=== PATIENT | male | born 1955 | race Caucasian/White ===

== ENCOUNTER 2020-07-22 13:44 | Inpatient (IN) | payer MEDICARE, OTHER ==
[~2020-07-22] VITALS: Ht 172.7 cm; Wt 105.4 kg
[2020-07-22] MEDS ORDERED: FENOFIBRATE160 MG PO (17:29)
[2020-07-22] MEDS ORDERED: ASPIRIN81 MG PO (17:29)
[2020-07-22] MEDS ORDERED: HYDROCHLOROTHIA25 MG PO (17:29)
[2020-07-22] MEDS ORDERED: LOSARTAN POTAS100 MG PO (17:29)
[2020-07-22] MEDS ORDERED: TETRACYCLINE H500 MG PO (17:29)
[2020-07-22] MEDS ORDERED: ATENOLOL50 MG PO (17:29)
[2020-07-22] MEDS ORDERED: CITALOPRAM HBR10 MG PO (17:29)
[2020-07-22 17:31] VITALS: BP 135/85
[2020-07-22 17:34] LABS: BASOPHILS # (AUTO) 0.1 (0.0-0.1); BASOPHILS % 0.5 % (0.0-1.0); EOSINOPHILS # (AUTO) 0.1 (0.0-0.4); EOSINOPHILS % 0.7 % (0.0-6.0); HEMATOCRIT 43.1 % (38.2-49.6); HEMOGLOBIN 15.5 g/dL (14.0-18.0); LYMPHOCYTES # (AUTO) 2.9 (1.0-3.2); LYMPHOCYTES % 29.2 % (18.0-39.1); MEAN CORPUSCULAR HEMOGLOBIN 31.2 pg (28-32); MEAN CORPUSCULAR VOLUME 86.7 fL (81-99); MONOCYTES # (AUTO) 0.8 (0.2-0.8); MONOCYTES % 8.1 % (4.4-11.3); NEUTROPHILS # (AUTO) 6.1 (2.1-6.9); NEUTROPHILS % 60.7 % (38.7-80.0); PLATELET COUNT 230 x10e3/uL (140-360); RED BLOOD COUNT 4.97 x10e6/uL (4.3-5.7); RED CELL DISTRIBUTION WIDTH 12.5 % (11.7-14.4)
[2020-07-22 17:55] LABS: ALANINE AMINOTRANSFERASE 27 IU/L (0-55); ALBUMIN/GLOBULIN RATIO 1.3 (0.8-2.0); ALKALINE PHOSPHATASE 56 IU/L (40-150); ANION GAP 15.6 mmol/L (8-16); BLOOD UREA NITROGEN 16 mg/dL (7-26); BUN/CREATININE RATIO 18 (6-25); CALCIUM 9.1 mg/dL (8.4-10.2); CARBON DIOXIDE 24 mmol/L (22-29); CHLORIDE 102 mmol/L (98-107); CREATININE, SERUM 0.88 mg/dL (0.72-1.25); EST GLOMERULAR FILTRATION RATE > 60 ML/MIN (60-); GLUCOSE 116 mg/dL (74-118); POTASSIUM 3.6 mmol/L (3.5-5.1); SODIUM 138 mmol/L (136-145)
[2020-07-22] MEDS ORDERED: SODIUM CHLORIDE 0.9% 250ML 250 ML ONE (18:41)
[2020-07-22] MEDS: PIPER-TAZ 3.375 GM 50 ML IV SCH (18:45)
[2020-07-22 20:00] VITALS: BP 127/86
[2020-07-22 21:31] VITALS: BP 127/86
[2020-07-23] VITALS (8 sets, daily range): BP systolic 123–137; BP diastolic 79–91
[2020-07-23] MEDS: PIPER-TAZ 3.375 GM 50 ML IV SCH ×5 (05:40→23:02)
[2020-07-23] MEDS: SODIUM CHLORIDE 0.9% 1000ML 1,000 ML IV SCH (09:26)
[2020-07-23] MEDS: LOSARTAN POTASSIUM 100 MG TAB PO SCH (09:29)
[2020-07-23] MEDS: HYDROCHLOROTHIAZIDE 25 MG TAB PO SCH (09:29)
[2020-07-23] MEDS: ASPIRIN 81 MG CHEW TAB PO SCH (09:29)
[2020-07-23] MEDS: ATENOLOL 50 MG TAB PO SCH (16:08)
[2020-07-23] MEDS: ATORVASTATIN 20 MG TAB PO SCH (20:21)
[2020-07-24] VITALS (8 sets, daily range): BP systolic 112–133; BP diastolic 79–89
[2020-07-24] MEDS: SODIUM CHLORIDE 0.9% 1000ML 1,000 ML IV SCH ×2 (05:20→23:28)
[2020-07-24] MEDS: PIPER-TAZ 3.375 GM 50 ML IV SCH ×4 (05:20→23:28)
[2020-07-24] MEDS: LOSARTAN POTASSIUM 100 MG TAB PO SCH (08:35)
[2020-07-24] MEDS: ASPIRIN 81 MG CHEW TAB PO SCH (08:35)
[2020-07-24] MEDS: HYDROCHLOROTHIAZIDE 25 MG TAB PO SCH (08:35)
[2020-07-24] MEDS: ATENOLOL 50 MG TAB PO SCH (16:20)
[2020-07-24] MEDS: ATORVASTATIN 20 MG TAB PO SCH (20:12)
[2020-07-25 01:49] VITALS: BP 148/96
[2020-07-25 05:30] LABS: BASOPHILS % 0.5 % (0.0-1.0); EOSINOPHILS # (AUTO) 0.1 (0.0-0.4); HEMATOCRIT 45.2 % (38.2-49.6); LYMPHOCYTES # (AUTO) 1.8 (1.0-3.2); LYMPHOCYTES % 21.9 % (18.0-39.1); MEAN CORPUSCULAR HEMOGLOBIN 31.5 pg (28-32); MEAN CORPUSCULAR HGB CONC 35.4 g/dL (31-35); MONOCYTES # (AUTO) 0.6 (0.2-0.8); MONOCYTES % 7.4 % (4.4-11.3); NEUTROPHILS # (AUTO) 5.7 (2.1-6.9); NEUTROPHILS % 67.9 % (38.7-80.0); PLATELET COUNT 199 x10e3/uL (140-360); RED BLOOD COUNT 5.08 x10e6/uL (4.3-5.7); RED CELL DISTRIBUTION WIDTH 12.1 % (11.7-14.4)
[2020-07-25 05:32] VITALS: BP 136/88
[2020-07-25 05:49] LABS: BLOOD UREA NITROGEN 12 mg/dL (7-26); BUN/CREATININE RATIO 13 (6-25); CALCIUM 9.7 mg/dL (8.4-10.2); CARBON DIOXIDE 23 mmol/L (22-29); CHLORIDE 101 mmol/L (98-107); CREATININE, SERUM 0.89 mg/dL (0.72-1.25); EST GLOMERULAR FILTRATION RATE > 60 ML/MIN (60-); GLUCOSE 113 mg/dL (74-118); SODIUM 136 mmol/L (136-145)
[2020-07-25] MEDS: PIPER-TAZ 3.375 GM 50 ML IV SCH ×3 (06:06→17:17)
[2020-07-25 08:50] VITALS: BP 138/85
[2020-07-25 08:53] VITALS: BP 138/85
[2020-07-25] MEDS: ASPIRIN 81 MG CHEW TAB PO SCH (09:54)
[2020-07-25] MEDS: HYDROCHLOROTHIAZIDE 25 MG TAB PO SCH (09:59)
[2020-07-25] MEDS: LOSARTAN POTASSIUM 100 MG TAB PO SCH (09:59)
[2020-07-25 13:20] VITALS: BP 131/81
[2020-07-25 16:41] VITALS: BP 124/76
[2020-07-25] MEDS: ATENOLOL 50 MG TAB PO SCH (17:17)
== END 2020-07-25 18:40 | disposition home or self-care (01) | DRG 690 ==
LOC: MED/SURG3 16:25
PROVIDERS: ADMIT Family Medicine; ATTEND Family Medicine
DX: N39.0 Urinary tract infection, site not specified (principal); Z16.12 Extended spectrum beta lactamase (ESBL) resistance; I10 Essential (primary) hypertension; E78.5 Hyperlipidemia, unspecified; Z20.828 Contact with and (suspected) exposure to other viral communicable diseases; M41.9 Scoliosis, unspecified; I25.10 Atherosclerotic heart disease of native coronary artery without angina pectoris; N40.0 Benign prostatic hyperplasia without lower urinary tract symptoms; E66.9 Obesity, unspecified; Z68.35 Body mass index [BMI] 35.0-35.9, adult; N43.3 Hydrocele, unspecified
CPT/HCPCS: 36415; 80048; 80053; 85025; 87086; J2543; J7030; J7050; U0002

== ENCOUNTER → 2021-04-03 | Day surgery (SDC) | payer MEDICARE, OTHER ==
[2021-04-01 09:54] LABS: BASOPHILS % 0.5 % (0.0-1.0); EOSINOPHILS # (AUTO) 0.1 (0.0-0.4); EOSINOPHILS % 1.4 % (0.0-6.0); HEMATOCRIT 45.5 % (38.2-49.6); HEMOGLOBIN 16.1 g/dL (14.0-18.0); LYMPHOCYTES # (AUTO) 1.4 (1.0-3.2); LYMPHOCYTES % 25.6 % (18.0-39.1); MEAN CORPUSCULAR HEMOGLOBIN 32.3 pg (28-32); MEAN CORPUSCULAR HGB CONC 35.4 g/dL (31-35); MEAN CORPUSCULAR VOLUME 91.2 fL (81-99); MONOCYTES # (AUTO) 0.4 (0.2-0.8); MONOCYTES % 6.9 % (4.4-11.3); NEUTROPHILS # (AUTO) 3.6 (2.1-6.9); NEUTROPHILS % 65.2 % (38.7-80.0); PLATELET COUNT 207 x10e3/uL (140-360); RED BLOOD COUNT 4.99 x10e6/uL (4.3-5.7); RED CELL DISTRIBUTION WIDTH 12.4 % (11.7-14.4)
[2021-04-01 10:13] LABS: ANION GAP 13.9 mmol/L (8-16); CALCIUM 9.4 mg/dL (8.4-10.2); CREATININE, SERUM 0.99 mg/dL (0.72-1.25); POTASSIUM 3.9 mmol/L (3.5-5.1)
[~2021-04-03] MED LIST: ACETAMINOPHEN/CODEINE 300MG - 30MG TAB ONE; ASPIRIN81 MG PO; ATENOLOL50 MG PO; B&O 60MG R/S 60 MG SUPP PR ONE; BUPIVACAINE HCL 0.5% INJ 30 ML VIAL INJ ONE; CALCET TABLET1 EACH PO; CITALOPRAM HBR10 MG PO; COQ-1030 MG; DEXAMETHASONE SOD PHOS INJ 4 MG/ML VIAL ONE; FENOFIBRATE160 MG PO; FENTANYL CITRATE/PF 100MCG/2 ML INJ ONE; FLOMAX0.4 MG PO; GENTAMICIN 80MG/NS 100 ML 200 ML IV ONE; HYDROCHLOROTHIA25 MG PO; IOPAMIDOL 300MG/ML 50ML INFUS..BTL IV ONE; LIDOCAINE 1% W/EPINEPHRINE 20 ML VIAL ONE; LIDOCAINE HCL 2% LOCAL INJ 5 ML SDV VIAL INJ ONE; LIPITOR20 MG PO; LOSARTAN POTAS100 MG PO; MIDAZOLAM HCL 5 MG/ML VIAL ONE; MONTELUKAST SOD10 MG PO; MULTI-VITAMIN1 EACH PO; OCUVITE TABLET1 EAC1 PO; OMEGA-31000 MG PO; ONDANSETRON HCL INJ 2MG/ML 2ML 2 MG/ML VIAL ONE; PHENYLEPHRINE HCL 1% 10 MG/ML VIAL ONE; PLAVIX75 MG PO; POVIDONE IODINE 0.05% 0.05 % ML PO ONE; PROPOFOL IV EMULSION 10 MG/ML 20 ML VIAL ONE; SEVOFLURANE INHAL SOLN 250 ML PEN BTL ONE; SODIUM CHLORIDE 0.9% 50ML 100 ML ONE; TETRACYCLINE H500 MG PO; VITAMIN C500 MG PO; VITAMIN D310 MCG
[2021-04-03 18:15] VITALS: BP 110/66
== END | disposition home or self-care (01) ==
LOC: OR 11:00
PROVIDERS: ATTEND Urology
DX: N40.0 Benign prostatic hyperplasia without lower urinary tract symptoms (principal); N13.8 Other obstructive and reflux uropathy; N35.912 Unspecified bulbous urethral stricture, male; N43.3 Hydrocele, unspecified; N40.1 Benign prostatic hyperplasia with lower urinary tract symptoms; R39.14 Feeling of incomplete bladder emptying; R35.1 Nocturia; Z87.442 Personal history of urinary calculi; E66.9 Obesity, unspecified; S37.30XS Unspecified injury of urethra, sequela; N45.3 Epididymo-orchitis; N39.0 Urinary tract infection, site not specified; N21.0 Calculus in bladder; Z68.36 Body mass index [BMI] 36.0-36.9, adult; Z01.810 Encounter for preprocedural cardiovascular examination; Z01.812 Encounter for preprocedural laboratory examination; Z01.818 Encounter for other preprocedural examination; Z20.822 Contact with and (suspected) exposure to COVID-19
CPT/HCPCS: 55041; C9740; 36415; 71046; 74420; 80048; 85025; 88302; 88304; 93005; C1758; J0690; J1100; J1580; J2001; J2250; J2370; J2405; J3010; L8699; U0002

== ENCOUNTER 2021-05-13 10:30 | Inpatient (IN) | payer MEDICARE, OTHER ==
[~2021-05-13] VITALS: Ht 172.7 cm; Wt 105.2 kg
[~2021-05-13 10:30] MED LIST changes: -ACETAMINOPHEN/CODEINE 300MG - 30MG TAB ONE; -B&O 60MG R/S 60 MG SUPP PR ONE; -BUPIVACAINE HCL 0.5% INJ 30 ML VIAL INJ ONE; -DEXAMETHASONE SOD PHOS INJ 4 MG/ML VIAL ONE; -FENTANYL CITRATE/PF 100MCG/2 ML INJ ONE; -GENTAMICIN 80MG/NS 100 ML 200 ML IV ONE; -IOPAMIDOL 300MG/ML 50ML INFUS..BTL IV ONE; -LIDOCAINE 1% W/EPINEPHRINE 20 ML VIAL ONE; -LIDOCAINE HCL 2% LOCAL INJ 5 ML SDV VIAL INJ ONE; -MIDAZOLAM HCL 5 MG/ML VIAL ONE; -ONDANSETRON HCL INJ 2MG/ML 2ML 2 MG/ML VIAL ONE; -PHENYLEPHRINE HCL 1% 10 MG/ML VIAL ONE; -POVIDONE IODINE 0.05% 0.05 % ML PO ONE; -PROPOFOL IV EMULSION 10 MG/ML 20 ML VIAL ONE; -SEVOFLURANE INHAL SOLN 250 ML PEN BTL ONE; -SODIUM CHLORIDE 0.9% 50ML 100 ML ONE
[2021-05-13] MEDS ORDERED: ASPIRIN 81 MG CHEW TAB PO ONE (10:45)
[2021-05-13 10:55] LABS: BASOPHILS % 0.3 % (0.0-1.0); EOSINOPHILS # (AUTO) 0.1 (0.0-0.4); EOSINOPHILS % 1.1 % (0.0-6.0); HEMATOCRIT 40.8 % (38.2-49.6); HEMOGLOBIN 14.1 g/dL (14.0-18.0); LYMPHOCYTES # (AUTO) 1.4 (1.0-3.2); LYMPHOCYTES % 12.5 % (18.0-39.1); MEAN CORPUSCULAR HEMOGLOBIN 31.3 pg (28-32); MEAN CORPUSCULAR HGB CONC 34.6 g/dL (31-35); MEAN CORPUSCULAR VOLUME 90.5 fL (81-99); MONOCYTES # (AUTO) 0.6 (0.2-0.8); MONOCYTES % 5.4 % (4.4-11.3); NEUTROPHILS # (AUTO) 8.9 (2.1-6.9); NEUTROPHILS % 80.3 % (38.7-80.0); PLATELET COUNT 206 x10e3/uL (140-360); RED BLOOD COUNT 4.51 x10e6/uL (4.3-5.7); RED CELL DISTRIBUTION WIDTH 13.8 % (11.7-14.4)
[2021-05-13] MEDS ORDERED: MORPHINE SULFATE INJ 4 MG/ML INJ 1ML IV STA (11:58)
[2021-05-13 12:32] LABS: ALBUMIN 4.1 g/dL (3.5-5.0); ALBUMIN/GLOBULIN RATIO 1.4 (0.8-2.0); ANION GAP 16.6 mmol/L (8-16); CALCIUM 9.8 mg/dL (8.4-10.2); CREATININE, SERUM 1.01 mg/dL (0.72-1.25); POTASSIUM 3.6 mmol/L (3.5-5.1)
[2021-05-13 12:39] LABS: CREATINE KINASE MB 0.6 ng/mL (0-5.0)
[2021-05-13] MEDS ORDERED: SODIUM CHLORIDE 0.9% 50ML 50 ML ONE (13:01)
[2021-05-13] MEDS ORDERED: IOPAMIDOL 370 MG/ML 200 ML INFUS..BTL INJ ONE (13:01)
[2021-05-13] MEDS ORDERED: PIPERACILLIN/TAZO 4.5 GM 100 ML IV SCH (14:45)
[2021-05-13] MEDS ORDERED: ATORVASTATIN CA40 MG PO (15:21)
[2021-05-13] MEDS ORDERED: CITALOPRAM HBR20 MG PO (15:21)
[2021-05-13] MEDS ORDERED: FLOMAX0.4 MG PO (15:21)
[2021-05-13] MEDS ORDERED: LOSARTAN POTASS50 MG PO (15:21)
[2021-05-13 16:03] LABS: BACTERIA,URINE MANY /HPF; CLARITY,URINE SL CLOUDY (CLEAR); COLOR,URINE AMBER (YELLOW); KETONES,URINE NEGATIVE (NEGATIVE); LEUKOCYTE ESTERASE ,URINE TRACE (NEGATIVE); NITRITE,URINE POSITIVE (NEGATIVE); PROTEIN,URINE DIPSTICK NEGATIVE (NEGATIVE); URINE UROBILINOGEN 0.2 mg/dL (0.2 - 1)
[2021-05-13 18:02] VITALS: BP 122/82
[2021-05-13 18:11] VITALS: BP 122/82
[2021-05-13 20:00] VITALS: BP 133/78
[2021-05-13] MEDS ORDERED: METRONIDAZOLE 500MG/NS 100ML 100 ML IV SCH (20:00)
[2021-05-13] MEDS: MORPHINE SULFATE INJ 4 MG/ML INJ 1ML IV PRN (21:36)
[2021-05-14] VITALS (7 sets, daily range): BP systolic 112–139; BP diastolic 48–91
[2021-05-14] MEDS: SODIUM CHLORIDE 0.9% 1000ML 1,000 ML IV SCH ×4 (01:12→23:29)
[2021-05-14] MEDS ORDERED: LACTATED RINGER'S 1,000 ML INJ ONE (01:30)
[2021-05-14] MEDS ORDERED: MELATONIN 5 MG TABLET PO PRN (01:30)
[2021-05-14] MEDS: MORPHINE SULFATE INJ 4 MG/ML INJ 1ML IV PRN (02:03)
[2021-05-14] MEDS: ONDANSETRON HCL INJ 2MG/ML 2ML 2 MG/ML VIAL IV PRN (02:03)
[2021-05-14 04:59] LABS: BASOPHILS % 0.3 % (0.0-1.0); EOSINOPHILS # (AUTO) 0.1 (0.0-0.4); EOSINOPHILS % 1.3 % (0.0-6.0); HEMATOCRIT 38.8 % (38.2-49.6); LYMPHOCYTES # (AUTO) 0.9 (1.0-3.2); LYMPHOCYTES % 14.8 % (18.0-39.1); MEAN CORPUSCULAR HEMOGLOBIN 31.2 pg (28-32); MEAN CORPUSCULAR HGB CONC 33.5 g/dL (31-35); MONOCYTES # (AUTO) 0.5 (0.2-0.8); MONOCYTES % 7.4 % (4.4-11.3); NEUTROPHILS # (AUTO) 4.8 (2.1-6.9); PLATELET COUNT 130 x10e3/uL (140-360); RED BLOOD COUNT 4.17 x10e6/uL (4.3-5.7); RED CELL DISTRIBUTION WIDTH 13.2 % (11.7-14.4)
[2021-05-14] MEDS: METRONIDAZOLE 500MG/NS 100ML 100 ML IV SCH ×4 (05:11→23:29)
[2021-05-14] MEDS: PIPERACILLIN/TAZOBACTAM 3.375 GM in SODIUM CHLORIDE 0.9% 50ML 50 ML IV SCH ×4 (05:15→23:29)
[2021-05-14 05:24] LABS: ALBUMIN 3.6 g/dL (3.5-5.0); ALBUMIN/GLOBULIN RATIO 1.2 (0.8-2.0); ANION GAP 14.6 mmol/L (8-16); CALCIUM 9.1 mg/dL (8.4-10.2); CREATININE, SERUM 0.96 mg/dL (0.72-1.25); POTASSIUM 3.6 mmol/L (3.5-5.1)
[2021-05-14] MEDS ORDERED: GADOBENATE DIMEGLUMINE 1 ML IV ONE (09:18)
[2021-05-14] MEDS ORDERED: SODIUM CHLORIDE 0.9% 50ML 50 ML ONE (09:18)
[2021-05-15] VITALS (10 sets, daily range): BP systolic 104–133; BP diastolic 56–81
[2021-05-15] MEDS: PIPERACILLIN/TAZOBACTAM 3.375 GM in SODIUM CHLORIDE 0.9% 50ML 50 ML IV SCH ×3 (05:29→17:53)
[2021-05-15] MEDS: METRONIDAZOLE 500MG/NS 100ML 100 ML IV SCH ×2 (05:29→12:00)
[2021-05-15 05:44] LABS: BASOPHILS % 0.6 % (0.0-1.0); EOSINOPHILS # (AUTO) 0.2 (0.0-0.4); EOSINOPHILS % 2.9 % (0.0-6.0); HEMOGLOBIN 11.7 g/dL (14.0-18.0); LYMPHOCYTES # (AUTO) 1.4 (1.0-3.2); LYMPHOCYTES % 25.8 % (18.0-39.1); MEAN CORPUSCULAR HEMOGLOBIN 31.2 pg (28-32); MEAN CORPUSCULAR HGB CONC 34.4 g/dL (31-35); MEAN CORPUSCULAR VOLUME 90.7 fL (81-99); MONOCYTES # (AUTO) 0.4 (0.2-0.8); NEUTROPHILS # (AUTO) 3.3 (2.1-6.9); NEUTROPHILS % 62.3 % (38.7-80.0); PLATELET COUNT 123 x10e3/uL (140-360); RED BLOOD COUNT 3.75 x10e6/uL (4.3-5.7); RED CELL DISTRIBUTION WIDTH 12.8 % (11.7-14.4)
[2021-05-15 06:14] LABS: ALBUMIN 3.3 g/dL (3.5-5.0); ALBUMIN/GLOBULIN RATIO 1.3 (0.8-2.0); ANION GAP 15.1 mmol/L (8-16); CALCIUM 8.5 mg/dL (8.4-10.2); CREATININE, SERUM 0.85 mg/dL (0.72-1.25); POTASSIUM 3.1 mmol/L (3.5-5.1)
[2021-05-15] MEDS ORDERED: POTASSIUM CHLORIDE 10MEQ/100ML 200 ML IV ONE (09:30)
[2021-05-15] MEDS: SODIUM CHLORIDE 0.9% 1000ML 1,000 ML IV SCH ×2 (10:30→20:30)
[2021-05-15] MEDS ORDERED: SEVOFLURANE INHAL SOLN 250 ML PEN BTL ONE (12:33)
[2021-05-15] MEDS ORDERED: POVIDONE IODINE 0.05% 0.05 % ML PO ONE (12:33)
[2021-05-15] MEDS ORDERED: LIDOCAINE HCL 2% LOCAL INJ 5 ML SDV VIAL INJ ONE (12:33)
[2021-05-15] MEDS ORDERED: KETOROLAC TROMETHAMINE 30 MG/ML VIAL ONE (12:33)
[2021-05-15] MEDS ORDERED: ONDANSETRON HCL INJ 2MG/ML 2ML 2 MG/ML VIAL ONE (12:33)
[2021-05-15] MEDS ORDERED: NEOSTIGMINE 1 MG/ML 10ML VIAL ONE (12:33)
[2021-05-15] MEDS ORDERED: GLYCOPYRROLATE INJ 0.2 MG/ML VIAL ONE (12:33)
[2021-05-15] MEDS ORDERED: PROPOFOL IV EMULSION 10 MG/ML 20 ML VIAL ONE (12:33)
[2021-05-15] MEDS ORDERED: DEXAMETHASONE SOD PHOS INJ 4 MG/ML SDV ONE (12:33)
[2021-05-15] MEDS ORDERED: ROCURONIUM BROMIDE 10 MG/ML 5ML VIAL IV ONE (12:33)
[2021-05-15] MEDS ORDERED: IOPAMIDOL 300MG/ML 50ML INFUS..BTL IV ONE (13:48)
[2021-05-15] MEDS: ONDANSETRON HCL INJ 2MG/ML 2ML 2 MG/ML VIAL IV PRN (17:45)
[2021-05-15] MEDS: MORPHINE SULFATE INJ 4 MG/ML INJ 1ML IV PRN (17:45)
[2021-05-16] VITALS: BP 132/79
[2021-05-16 04:00] VITALS: BP 141/65
[2021-05-16] MEDS: ONDANSETRON HCL INJ 2MG/ML 2ML 2 MG/ML VIAL IV PRN (04:06)
[2021-05-16] MEDS: MORPHINE SULFATE INJ 4 MG/ML INJ 1ML IV PRN (04:06)
[2021-05-16] MEDS: SODIUM CHLORIDE 0.9% 1000ML 1,000 ML IV SCH (06:14)
[2021-05-16] MEDS: PIPERACILLIN/TAZOBACTAM 3.375 GM in SODIUM CHLORIDE 0.9% 50ML 50 ML IV SCH ×4 (06:14→12:13)
[2021-05-16 06:34] LABS: BASOPHILS % 0.1 % (0.0-1.0); HEMATOCRIT 34.3 % (38.2-49.6); HEMOGLOBIN 11.7 g/dL (14.0-18.0); LYMPHOCYTES # (AUTO) 1.1 (1.0-3.2); LYMPHOCYTES % 15.2 % (18.0-39.1); MEAN CORPUSCULAR HEMOGLOBIN 31.3 pg (28-32); MEAN CORPUSCULAR HGB CONC 34.1 g/dL (31-35); MEAN CORPUSCULAR VOLUME 91.7 fL (81-99); MONOCYTES # (AUTO) 0.4 (0.2-0.8); MONOCYTES % 5.5 % (4.4-11.3); NEUTROPHILS # (AUTO) 5.9 (2.1-6.9); NEUTROPHILS % 78.7 % (38.7-80.0); PLATELET COUNT 155 x10e3/uL (140-360); RED BLOOD COUNT 3.74 x10e6/uL (4.3-5.7); RED CELL DISTRIBUTION WIDTH 12.9 % (11.7-14.4)
[2021-05-16 06:50] LABS: MAGNESIUM 1.4 MG/DL (1.3-2.1)
[2021-05-16 06:53] LABS: ALBUMIN 3.6 g/dL (3.5-5.0); ALBUMIN/GLOBULIN RATIO 1.2 (0.8-2.0); CALCIUM 8.5 mg/dL (8.4-10.2); CREATININE, SERUM 0.88 mg/dL (0.72-1.25)
[2021-05-16 08:02] VITALS: BP 141/65
[2021-05-16 08:38] VITALS: BP 117/76
[2021-05-16] MEDS ORDERED: LOSARTAN POTASSIUM 100 MG TAB PO SCH (09:00)
[2021-05-16] MEDS ORDERED: TAMSULOSIN HCL 0.4 MG CAP PO SCH (09:00)
[2021-05-16] MEDS ORDERED: CITALOPRAM HYDROBROMIDE 20 MG TAB PO SCH (09:00)
[2021-05-16] MEDS ORDERED: ATORVASTATIN 40 MG TAB PO SCH (09:00)
[2021-05-16] MEDS: HYDROCODONE/APAP 7.5MG-325MG 1 EA TAB PO PRN ×2 (10:22→15:44)
[2021-05-16 12:42] VITALS: BP 133/71
[2021-05-16] MEDS ORDERED: ATENOLOL 50 MG TAB PO SCH (17:00)
== END 2021-05-16 16:40 | disposition home or self-care (01) | DRG 417 ==
LOC: ER 10:45 → ERHOLD 14:15 → MED/SURG2 17:28
PROVIDERS: ADMIT Family Medicine; ATTEND Family Medicine
PROC: BF10YZZ Fluoroscopy of Bile Ducts using Other Contrast (ICD-10-PCS; 2021-05-15)
PROC: 0FT44ZZ Resection of Gallbladder, Percutaneous Endoscopic Approach (ICD-10-PCS; principal; 2021-05-15 14:45)
DX: K80.10 Calculus of gallbladder with chronic cholecystitis without obstruction (principal); K85.10 Biliary acute pancreatitis without necrosis or infection; N17.9 Acute kidney failure, unspecified; Z90.49 Acquired absence of other specified parts of digestive tract; I25.10 Atherosclerotic heart disease of native coronary artery without angina pectoris; I11.0 Hypertensive heart disease with heart failure; I50.9 Heart failure, unspecified; K21.9 Gastro-esophageal reflux disease without esophagitis; F41.9 Anxiety disorder, unspecified; E78.5 Hyperlipidemia, unspecified; Z20.822 Contact with and (suspected) exposure to COVID-19
CPT/HCPCS: 36415; 71045; 74177; 74183; 74300; 80053; 81001; 82150; 82550; 82553; 83605; 83690; 83735; 84484; 85025; 87040; 88304; 93005; 99284; C1766; J1100; J1885; J2001; J2270; J2405; J2543; J2710; J3480; J7030; J7121; Q9967; U0002

== ENCOUNTER 2021-12-03 13:39 | Inpatient (IN) | payer BC, MEDICARE, OTHER ==
[~2021-12-03] VITALS: Ht 170.2 cm; Wt 114.8 kg
[~2021-12-03 13:39] MED LIST changes: +AMITRIPTYLINE H10 MG PO; +ATORVASTATIN CA40 MG PO; +CA ZINC PO; +CITALOPRAM HBR20 MG PO; +DICLOFENAC35 MG PO; +LOSARTAN POTASS50 MG PO; +NEURONTIN100 MG PO; +OMEGA 3 1,0001 EACH PO; +VITAMIN D310 MCG PO
[2021-12-03 18:00] VITALS: BP 131/80
[2021-12-03] MEDS ORDERED: PIPERACILLIN/TAZOBACTAM 3.375 GM in SODIUM CHLORIDE 0.9% 50ML 50 ML IV SCH (18:30)
[2021-12-03 19:31] LABS: BASOPHILS % 0.5 % (0.0-1.0); EOSINOPHILS # (AUTO) 0.1 (0.0-0.4); EOSINOPHILS % 1.6 % (0.0-6.0); HEMATOCRIT 40.5 % (38.2-49.6); HEMOGLOBIN 14.6 g/dL (14.0-18.0); LYMPHOCYTES # (AUTO) 2.3 (1.0-3.2); LYMPHOCYTES % 35.3 % (18.0-39.1); MEAN CORPUSCULAR HEMOGLOBIN 32.6 pg (28-32); MEAN CORPUSCULAR VOLUME 90.4 fL (81-99); MONOCYTES # (AUTO) 0.5 (0.2-0.8); MONOCYTES % 7.2 % (4.4-11.3); NEUTROPHILS # (AUTO) 3.5 (2.1-6.9); NEUTROPHILS % 54.6 % (38.7-80.0); PLATELET COUNT 215 x10e3/uL (140-360); RED BLOOD COUNT 4.48 x10e6/uL (4.3-5.7); RED CELL DISTRIBUTION WIDTH 12.4 % (11.7-14.4)
[2021-12-03] MEDS ORDERED: OCUVITE TABLET1 EAC1 PO (19:45)
[2021-12-03] MEDS ORDERED: CLOPIDOGREL75 MG PO (19:45)
[2021-12-03 19:51] LABS: ALBUMIN/GLOBULIN RATIO 1.5 (0.8-2.0); ANION GAP 12.8 mmol/L (8-16); CALCIUM 9.3 mg/dL (8.4-10.2); CREATININE, SERUM 1.45 mg/dL (0.72-1.25); POTASSIUM 3.8 mmol/L (3.5-5.1)
[2021-12-03 20:10] VITALS: BP 111/71
[2021-12-03] MEDS ORDERED: SODIUM CHLORIDE 0.9% 250ML 250 ML ONE (21:09)
[2021-12-03] MEDS: ATORVASTATIN 40 MG TAB PO SCH (21:30)
[2021-12-03] MEDS: ATENOLOL 50 MG TAB PO SCH (21:30)
[2021-12-03 22:07] LABS: CLARITY,URINE CLEAR (CLEAR); COLOR,URINE YELLOW (YELLOW); KETONES,URINE NEGATIVE (NEGATIVE); LEUKOCYTE ESTERASE ,URINE NEGATIVE (NEGATIVE); NITRITE,URINE NEGATIVE (NEGATIVE); PROTEIN,URINE DIPSTICK NEGATIVE (NEGATIVE); URINE UROBILINOGEN 0.2 mg/dL (0.2 - 1)
[2021-12-03 22:17] LABS: BACTERIA,URINE FEW /HPF; EPITHELIAL CELLS,URINE RARE /LPF; RBC,URINE 0-5 /HPF (0-5); WBC,URINE (MAN) 0-5 /HPF (0-5)
[2021-12-03 22:49] VITALS: BP 111/71
[2021-12-04] VITALS (8 sets, daily range): BP systolic 120–133; BP diastolic 73–79
[2021-12-04] MEDS: PIPERACILLIN/TAZOBACTAM 3.375 GM in SODIUM CHLORIDE 0.9% 50ML 50 ML IV SCH ×4 (02:51→20:40)
[2021-12-04] MEDS: OCUVITE PRESERVISION TABLET PO SCH (08:42)
[2021-12-04] MEDS: CLOPIDOGREL BISULFATE 75 MG TAB PO SCH (08:42)
[2021-12-04] MEDS: FENOFIBRATE 145 MG TAB PO SCH (08:42)
[2021-12-04] MEDS: CITALOPRAM HYDROBROMIDE 20 MG TAB PO SCH (08:42)
[2021-12-04] MEDS: MULTIVITAMINS/MINERALS TAB PO SCH (08:42)
[2021-12-04] MEDS: ASPIRIN 81 MG CHEW TAB PO SCH (08:42)
[2021-12-04] MEDS: LOSARTAN POTASSIUM 25 MG TAB PO SCH (08:43)
[2021-12-04] MEDS ORDERED: NON-FORMULARY MEDICATION (Fenofibrate 160 MG) PO SCH (09:00)
[2021-12-04] MEDS: GABAPENTIN 100 MG CAP PO SCH ×2 (14:37→20:41)
[2021-12-04] MEDS ORDERED: OCUVITE TABLET1 EAC1 PO (18:43)
[2021-12-04] MEDS ORDERED: CIPRO500 MG PO (18:43)
[2021-12-04] MEDS: ATORVASTATIN 40 MG TAB PO SCH (20:40)
[2021-12-04] MEDS: AMITRIPTYLINE HCL 10 MG TAB PO SCH (20:40)
[2021-12-04] MEDS: ATENOLOL 50 MG TAB PO SCH (20:41)
[2021-12-05] VITALS (8 sets, daily range): BP systolic 116–136; BP diastolic 64–82
[2021-12-05] MEDS: PIPERACILLIN/TAZOBACTAM 3.375 GM in SODIUM CHLORIDE 0.9% 50ML 50 ML IV SCH ×5 (02:45→21:10)
[2021-12-05 06:37] LABS: BASOPHILS % 0.5 % (0.0-1.0); EOSINOPHILS # (AUTO) 0.1 (0.0-0.4); HEMATOCRIT 43.9 % (38.2-49.6); HEMOGLOBIN 15.7 g/dL (14.0-18.0); LYMPHOCYTES # (AUTO) 1.9 (1.0-3.2); LYMPHOCYTES % 30.1 % (18.0-39.1); MEAN CORPUSCULAR HEMOGLOBIN 32.2 pg (28-32); MEAN CORPUSCULAR HGB CONC 35.8 g/dL (31-35); MONOCYTES # (AUTO) 0.5 (0.2-0.8); NEUTROPHILS # (AUTO) 3.6 (2.1-6.9); NEUTROPHILS % 58.9 % (38.7-80.0); PLATELET COUNT 217 x10e3/uL (140-360); RED BLOOD COUNT 4.88 x10e6/uL (4.3-5.7); RED CELL DISTRIBUTION WIDTH 12.2 % (11.7-14.4)
[2021-12-05 07:03] LABS: ALBUMIN 3.9 g/dL (3.5-5.0); ALBUMIN/GLOBULIN RATIO 1.3 (0.8-2.0); CALCIUM 8.9 mg/dL (8.4-10.2); CREATININE, SERUM 1.2 mg/dL (0.72-1.25)
[2021-12-05] MEDS: GABAPENTIN 100 MG CAP PO SCH ×3 (09:00→19:25)
[2021-12-05] MEDS: ASPIRIN 81 MG CHEW TAB PO SCH (09:27)
[2021-12-05] MEDS: LOSARTAN POTASSIUM 25 MG TAB PO SCH (09:27)
[2021-12-05] MEDS: CITALOPRAM HYDROBROMIDE 20 MG TAB PO SCH (09:27)
[2021-12-05] MEDS: OCUVITE PRESERVISION TABLET PO SCH (09:28)
[2021-12-05] MEDS: CLOPIDOGREL BISULFATE 75 MG TAB PO SCH (09:28)
[2021-12-05] MEDS: MULTIVITAMINS/MINERALS TAB PO SCH (09:28)
[2021-12-05] MEDS: FENOFIBRATE 145 MG TAB PO SCH (09:28)
[2021-12-05] MEDS: AMITRIPTYLINE HCL 10 MG TAB PO SCH (21:10)
[2021-12-05] MEDS: ATORVASTATIN 40 MG TAB PO SCH (21:10)
[2021-12-05] MEDS: ATENOLOL 50 MG TAB PO SCH (21:10)
[2021-12-06] VITALS: BP 120/82
[2021-12-06] MEDS: PIPERACILLIN/TAZOBACTAM 3.375 GM in SODIUM CHLORIDE 0.9% 50ML 50 ML IV SCH ×3 (02:19→15:00)
[2021-12-06 04:00] VITALS: BP 117/87
[2021-12-06 08:00] VITALS: BP 134/90
[2021-12-06] MEDS: GABAPENTIN 100 MG CAP PO SCH ×2 (09:00→15:00)
[2021-12-06] MEDS: ASPIRIN 81 MG CHEW TAB PO SCH (09:15)
[2021-12-06] MEDS: MULTIVITAMINS/MINERALS TAB PO SCH (09:15)
[2021-12-06] MEDS: OCUVITE PRESERVISION TABLET PO SCH (09:16)
[2021-12-06] MEDS: FENOFIBRATE 145 MG TAB PO SCH (09:16)
[2021-12-06] MEDS: LOSARTAN POTASSIUM 25 MG TAB PO SCH (09:16)
[2021-12-06] MEDS: CITALOPRAM HYDROBROMIDE 20 MG TAB PO SCH (09:16)
[2021-12-06] MEDS: CLOPIDOGREL BISULFATE 75 MG TAB PO SCH (09:17)
[2021-12-06 12:00] VITALS: BP 126/82
[2021-12-06 16:00] VITALS: BP 126/74
== END 2021-12-06 16:58 | disposition home or self-care (01) | DRG 690 ==
LOC: MED/SURG3 16:21
PROVIDERS: ADMIT Family Medicine; ATTEND Family Medicine
DX: N39.0 Urinary tract infection, site not specified (principal); Z16.12 Extended spectrum beta lactamase (ESBL) resistance; I12.9 Hypertensive chronic kidney disease with stage 1 through stage 4 chronic kidney disease, or unspecified chronic kidney disease; E78.5 Hyperlipidemia, unspecified; M41.9 Scoliosis, unspecified; I25.10 Atherosclerotic heart disease of native coronary artery without angina pectoris; Q54.9 Hypospadias, unspecified; N40.1 Benign prostatic hyperplasia with lower urinary tract symptoms; N13.8 Other obstructive and reflux uropathy; N18.9 Chronic kidney disease, unspecified; N18.30 Chronic kidney disease, stage 3 unspecified; F41.9 Anxiety disorder, unspecified; E66.9 Obesity, unspecified; Z96.0 Presence of urogenital implants; Z68.39 Body mass index [BMI] 39.0-39.9, adult; Z95.5 Presence of coronary angioplasty implant and graft; Z90.49 Acquired absence of other specified parts of digestive tract; Z20.822 Contact with and (suspected) exposure to COVID-19; B96.20 Unspecified Escherichia coli [E. coli] as the cause of diseases classified elsewhere
CPT/HCPCS: 36415; 80053; 81001; 85025; 87086; J2543; J7050; U0002

== ENCOUNTER 2022-04-20 15:21 | Observation (INO) | payer BC, MEDICARE, OTHER ==
[~2022-04-20] VITALS: Ht 170.2 cm; Wt 113.4 kg
[~2022-04-20 15:21] MED LIST changes: +CIPRO500 MG PO; +CLOPIDOGREL75 MG PO
[2022-04-20 16:15] LABS: BASOPHILS % 0.5 % (0.0-1.0); EOSINOPHILS # (AUTO) 0.1 (0.0-0.4); EOSINOPHILS % 0.9 % (0.0-6.0); HEMATOCRIT 48.1 % (38.2-49.6); HEMOGLOBIN 16.9 g/dL (14.0-18.0); LYMPHOCYTES % 24.4 % (18.0-39.1); MEAN CORPUSCULAR HEMOGLOBIN 31.4 pg (28-32); MEAN CORPUSCULAR HGB CONC 35.1 g/dL (31-35); MEAN CORPUSCULAR VOLUME 89.4 fL (81-99); MONOCYTES # (AUTO) 0.7 (0.2-0.8); MONOCYTES % 8.8 % (4.4-11.3); NEUTROPHILS # (AUTO) 5.3 (2.1-6.9); NEUTROPHILS % 64.3 % (38.7-80.0); PLATELET COUNT 313 x10e3/uL (140-360); RED BLOOD COUNT 5.38 x10e6/uL (4.3-5.7); RED CELL DISTRIBUTION WIDTH 12.5 % (11.7-14.4)
[2022-04-20] MEDS ORDERED: CEFTRIAXONE 1 GM VIAL IV ONE (16:15)
[2022-04-20] MEDS ORDERED: SODIUM CHLORIDE FLUSH 10 ML SYR INJ PRN (16:15)
[2022-04-20] MEDS ORDERED: ONDANSETRON HCL INJ 2MG/ML 2ML 2 MG/ML VIAL IV PRN (16:15)
[2022-04-20 16:17] LABS: CLARITY,URINE SL CLOUDY (CLEAR); COLOR,URINE AMBER (YELLOW); KETONES,URINE NEGATIVE (NEGATIVE); LEUKOCYTE ESTERASE ,URINE SMALL (NEGATIVE); NITRITE,URINE NEGATIVE (NEGATIVE); PROTEIN,URINE DIPSTICK 1+ (NEGATIVE); URINE UROBILINOGEN 0.2 mg/dL (0.2 - 1)
[2022-04-20 16:29] LABS: BACTERIA,URINE MODERATE /HPF
[2022-04-20 16:33] LABS: ALBUMIN 3.9 g/dL (3.5-5.0); ANION GAP 18.5 mmol/L (8-16); CREATININE, SERUM 1.08 mg/dL (0.72-1.25); POTASSIUM 3.5 mmol/L (3.5-5.1)
[2022-04-20] MEDS: ATORVASTATIN 40 MG TAB PO SCH (21:50)
[2022-04-20 22:04] VITALS: BP 145/87
[2022-04-20 22:23] VITALS: BP 145/87
[2022-04-20] MEDS: ATENOLOL 50 MG TAB PO SCH (22:48)
[2022-04-20] MEDS ORDERED: SODIUM CHLORIDE 0.9% 250ML 250 ML ONE (23:23)
[2022-04-21] VITALS (8 sets, daily range): BP systolic 105–134; BP diastolic 53–92
[2022-04-21 05:12] LABS: BASOPHILS % 0.6 % (0.0-1.0); EOSINOPHILS # (AUTO) 0.1 (0.0-0.4); HEMATOCRIT 42.3 % (38.2-49.6); HEMOGLOBIN 15.3 g/dL (14.0-18.0); LYMPHOCYTES # (AUTO) 1.9 (1.0-3.2); LYMPHOCYTES % 29.5 % (18.0-39.1); MEAN CORPUSCULAR HGB CONC 36.2 g/dL (31-35); MEAN CORPUSCULAR VOLUME 85.6 fL (81-99); MONOCYTES # (AUTO) 0.7 (0.2-0.8); MONOCYTES % 11.6 % (4.4-11.3); NEUTROPHILS # (AUTO) 3.5 (2.1-6.9); NEUTROPHILS % 54.9 % (38.7-80.0); PLATELET COUNT 246 x10e3/uL (140-360); RED BLOOD COUNT 4.94 x10e6/uL (4.3-5.7); RED CELL DISTRIBUTION WIDTH 12.5 % (11.7-14.4)
[2022-04-21 05:45] LABS: ANION GAP 16.8 mmol/L (8-16); CREATININE, SERUM 0.9 mg/dL (0.72-1.25); POTASSIUM 3.8 mmol/L (3.5-5.1)
[2022-04-21] MEDS: LOSARTAN POTASSIUM 100 MG TAB PO SCH (09:04)
[2022-04-21] MEDS: CLOPIDOGREL BISULFATE 75 MG TAB PO SCH (09:04)
[2022-04-21] MEDS: ASPIRIN 81 MG CHEW TAB PO SCH (09:04)
[2022-04-21] MEDS: FENOFIBRATE 145 MG TAB PO SCH (09:04)
[2022-04-21] MEDS: CITALOPRAM HYDROBROMIDE 20 MG TAB PO SCH (09:04)
[2022-04-21] MEDS: ACETAMINOPHEN 325 MG TAB PO PRN (16:05)
[2022-04-21] MEDS: ATORVASTATIN 40 MG TAB PO SCH (21:01)
[2022-04-21] MEDS: ATENOLOL 50 MG TAB PO SCH (21:02)
[2022-04-22] VITALS (10 sets, daily range): BP systolic 124–128; BP diastolic 75–85
[2022-04-22] MEDS: CLOPIDOGREL BISULFATE 75 MG TAB PO SCH (08:21)
[2022-04-22] MEDS: FENOFIBRATE 145 MG TAB PO SCH (08:22)
[2022-04-22] MEDS: ASPIRIN 81 MG CHEW TAB PO SCH (08:22)
[2022-04-22] MEDS: LOSARTAN POTASSIUM 100 MG TAB PO SCH (08:22)
[2022-04-22] MEDS: CITALOPRAM HYDROBROMIDE 20 MG TAB PO SCH (08:23)
[2022-04-22] MEDS: ACETAMINOPHEN 325 MG TAB PO PRN (14:26)
[2022-04-22] MEDS: ATORVASTATIN 40 MG TAB PO SCH (20:16)
[2022-04-22] MEDS: ATENOLOL 50 MG TAB PO SCH (20:17)
[2022-04-23] VITALS: BP 97/69
[2022-04-23 04:00] VITALS: BP 121/49
[2022-04-23 05:51] LABS: BASOPHILS # (AUTO) 0.1 (0.0-0.1); BASOPHILS % 1.1 % (0.0-1.0); EOSINOPHILS # (AUTO) 0.1 (0.0-0.4); EOSINOPHILS % 2.2 % (0.0-6.0); HEMATOCRIT 45.6 % (38.2-49.6); HEMOGLOBIN 16.2 g/dL (14.0-18.0); LYMPHOCYTES # (AUTO) 2.2 (1.0-3.2); LYMPHOCYTES % 35.1 % (18.0-39.1); MEAN CORPUSCULAR HEMOGLOBIN 31.6 pg (28-32); MEAN CORPUSCULAR HGB CONC 35.5 g/dL (31-35); MEAN CORPUSCULAR VOLUME 88.9 fL (81-99); MONOCYTES # (AUTO) 0.7 (0.2-0.8); MONOCYTES % 10.8 % (4.4-11.3); NEUTROPHILS # (AUTO) 2.9 (2.1-6.9); NEUTROPHILS % 45.8 % (38.7-80.0); PLATELET COUNT 257 x10e3/uL (140-360); RED BLOOD COUNT 5.13 x10e6/uL (4.3-5.7); RED CELL DISTRIBUTION WIDTH 12.4 % (11.7-14.4)
[2022-04-23 06:17] LABS: ANION GAP 16.8 mmol/L (8-16); CALCIUM 9.1 mg/dL (8.4-10.2); CREATININE, SERUM 0.84 mg/dL (0.72-1.25); POTASSIUM 3.8 mmol/L (3.5-5.1)
[2022-04-23 08:17] VITALS: BP 127/84
[2022-04-23] MEDS: ASPIRIN 81 MG CHEW TAB PO SCH (09:00)
[2022-04-23] MEDS: CLOPIDOGREL BISULFATE 75 MG TAB PO SCH (09:00)
[2022-04-23] MEDS: LOSARTAN POTASSIUM 100 MG TAB PO SCH (09:00)
[2022-04-23] MEDS: CITALOPRAM HYDROBROMIDE 20 MG TAB PO SCH (09:00)
[2022-04-23] MEDS: FENOFIBRATE 145 MG TAB PO SCH (09:00)
[2022-04-23] MEDS ORDERED: ONDANSETRON HCL 4 MG ORAL DISINTEGRATING TAB PO PRN (09:15)
[2022-04-23 10:05] VITALS: BP 127/84
[2022-04-23 12:14] VITALS: BP 129/95
== END 2022-04-23 14:59 | disposition home or self-care (01) ==
LOC: ER 15:46 → ERHOLD 16:08 → INTOOBSV 16:08 → MED/SURG 21:19
PROVIDERS: ADMIT Family Medicine; ATTEND Family Medicine
DX: N39.0 Urinary tract infection, site not specified (principal); B96.20 Unspecified Escherichia coli [E. coli] as the cause of diseases classified elsewhere; Z16.12 Extended spectrum beta lactamase (ESBL) resistance; I10 Essential (primary) hypertension; I25.10 Atherosclerotic heart disease of native coronary artery without angina pectoris; Z95.5 Presence of coronary angioplasty implant and graft; E78.5 Hyperlipidemia, unspecified; N40.0 Benign prostatic hyperplasia without lower urinary tract symptoms; M19.90 Unspecified osteoarthritis, unspecified site; Z20.822 Contact with and (suspected) exposure to COVID-19
CPT/HCPCS: 0223U; 36415 ×3; 80048 ×2; 80053; 81001; 85025 ×3; 87086; 87186; 99284; G0378 ×4; J2405; J2543 ×4; J7050

== ENCOUNTER 2022-05-31 08:30 | Observation (INO) | payer BC, MEDICARE ==
[2022-05-28 09:43] LABS: BASOPHILS % 0.7 % (0.0-1.0); EOSINOPHILS # (AUTO) 0.1 (0.0-0.4); EOSINOPHILS % 1.8 % (0.0-6.0); HEMATOCRIT 44.9 % (38.2-49.6); HEMOGLOBIN 15.8 g/dL (14.0-18.0); LYMPHOCYTES # (AUTO) 1.7 (1.0-3.2); LYMPHOCYTES % 28.2 % (18.0-39.1); MEAN CORPUSCULAR HEMOGLOBIN 31.8 pg (28-32); MEAN CORPUSCULAR HGB CONC 35.2 g/dL (31-35); MEAN CORPUSCULAR VOLUME 90.3 fL (81-99); MONOCYTES # (AUTO) 0.5 (0.2-0.8); MONOCYTES % 7.5 % (4.4-11.3); NEUTROPHILS # (AUTO) 3.8 (2.1-6.9); NEUTROPHILS % 61.3 % (38.7-80.0); PLATELET COUNT 230 x10e3/uL (140-360); RED BLOOD COUNT 4.97 x10e6/uL (4.3-5.7); RED CELL DISTRIBUTION WIDTH 12.8 % (11.7-14.4)
[~2022-05-31] VITALS: Ht 170.2 cm; Wt 113.4 kg
[~2022-05-31 08:30] MED LIST changes: +CELECOXIB 200 MG CAP ONE; +DEXAMETHASONE SOD PHOS 10 MG/1 ML VIAL ONE; +GABAPENTIN 300 MG CAP ONE; +METHENAMINE HIPP1 GM PO; +ROPIVACAINE 246.25 MG, EPINEPHRINE HCL 1:1000 1ML 0.5 MG, CLONIDINE HCL 0.08 MG, KETORO... INJ ONE; +SODIUM CHLORIDE 0.9% 500ML 0 ML ONE; +TRANEXAMIC ACID 0 ML ONE; +VITAMIN C1000 MG PO; +Vancomycin IV 0 MG ONE
[2022-05-31] MEDS ORDERED: MIDAZOLAM HCL 2 MG/2 ML VIAL ONE (08:56)
[2022-05-31] MEDS ORDERED: FENTANYL CITRATE/PF 100MCG/2 ML INJ ONE ×2 (08:56→19:31)
[2022-05-31] MEDS ORDERED: SODIUM CHLORIDE 0.9% 500ML 500 ML ONE (09:05)
[2022-05-31] MEDS ORDERED: TRANEXAMIC ACID 20 ML ONE (09:05)
[2022-05-31] MEDS ORDERED: Vancomycin IV 1,000 MG ONE (09:05)
[2022-05-31] MEDS ORDERED: SODIUM CHLORIDE 0.9% 1000ML 1,000 ML IV SCH (11:15)
[2022-05-31] MEDS ORDERED: ONDANSETRON HCL INJ 2MG/ML 2ML 2 MG/ML VIAL IV PRN (11:15)
[2022-05-31] MEDS ORDERED: HYDROCODONE/APAP 5MG-325MG TAB PO PRN (11:15)
[2022-05-31] MEDS ORDERED: DIPHENHYDRAMINE HCL INJ 50 MG/ML VIAL IV PRN (11:15)
[2022-05-31] MEDS ORDERED: DOCUSATE SODIUM 100 MG CAP PO PRN (11:15)
[2022-05-31] MEDS ORDERED: HYDROCODONE/APAP 7.5MG-325MG 1 EA TAB PO PRN (11:15)
[2022-05-31] MEDS ORDERED: HYDROCODON-ACE1 EA12 PO ×2 (13:25→14:40)
[2022-05-31 13:52] VITALS: BP 114/75
[2022-05-31 15:10] VITALS: BP 114/75
[2022-05-31 16:03] VITALS: BP 123/73
[2022-05-31] MEDS ORDERED: CELECOXIB 100 MG CAP PO SCH (17:00)
[2022-05-31] MEDS ORDERED: ASPIRIN 325 MG TAB PO SCH (17:00)
[2022-05-31] MEDS ORDERED: ACETAMINOPHEN 1000 MG/100 ML IV PRN (18:00)
== END 2022-05-31 18:28 | disposition home or self-care (01) ==
LOC: OR 08:30 → PACU V 11:10 → MED/SURG3 13:30
PROVIDERS: ADMIT Specialist; ATTEND Specialist
DX: M17.11 Unilateral primary osteoarthritis, right knee (principal); I10 Essential (primary) hypertension; E78.00 Pure hypercholesterolemia, unspecified; E78.2 Mixed hyperlipidemia; F32.4 Major depressive disorder, single episode, in partial remission; M41.83 Other forms of scoliosis, cervicothoracic region; Z20.822 Contact with and (suspected) exposure to COVID-19
CPT/HCPCS: 0223U; 27447; 36415 ×2; 71046; 73560; 82948; 85025; 86850; 86900; 86920; 93005; 94799; 97116; 97161; 97530; C1713 ×2; C1776 ×2; G0378; J0131; J0171; J0690; J1100; J1885; J2250; J2795; J3010; J3370; J7040